=== PATIENT | female | born 1955 | race Caucasian/White ===

== ENCOUNTER 2017-08-04 14:29 | Inpatient (IN) | payer OTHER ==
[~2017-08-04] VITALS: Ht 167.6 cm; Wt 77.1 kg
[2017-08-04] MEDS ORDERED: FORTAMET500 MG (15:48)
[2017-08-04] MEDS ORDERED: LISINOPRIL10 MG (15:48)
[2017-08-09] MEDS ORDERED: PERCOCET 5-3251 EACH PO (13:47)
[2017-08-09] MEDS ORDERED: LEVSIN/SL0.125 MG PO (13:47)
== END 2017-08-09 14:25 | disposition home or self-care (01) | DRG 330 ==
LOC: ER 14:29 → SURH 18:28
PROVIDERS: Surgery
PROC: BW21Y0Z Computerized Tomography (CT Scan) of Abdomen and Pelvis using Other Contrast, Unenhanced and Enhanced (ICD-10-PCS; 2017-08-04)
PROC: 07TC4ZZ Resection of Pelvis Lymphatic, Percutaneous Endoscopic Approach (ICD-10-PCS; 2017-08-05)
PROC: 0DJD8ZZ Inspection of Lower Intestinal Tract, Via Natural or Artificial Opening Endoscopic (ICD-10-PCS; 2017-08-05)
PROC: 0DTN4ZZ Resection of Sigmoid Colon, Percutaneous Endoscopic Approach (ICD-10-PCS; principal; 2017-08-05 08:45)
DX: C19 Malignant neoplasm of rectosigmoid junction (principal); K56.690 Other partial intestinal obstruction; D62 Acute posthemorrhagic anemia; R59.0 Localized enlarged lymph nodes; I11.9 Hypertensive heart disease without heart failure; E11.9 Type 2 diabetes mellitus without complications

== ENCOUNTER 2021-05-08 06:34 | Day surgery (SDC) | payer OTHER ==
[~2021-05-08 06:34] MED LIST: FORTAMET500 MG; LEVSIN/SL0.125 MG PO; LISINOPRIL10 MG; PERCOCET 5-3251 EACH PO
== END 2021-05-08 11:55 | disposition home or self-care (01) ==
LOC: CIR.AMB 06:34
PROVIDERS: ATTEND Surgery
DX: K62.89 Other specified diseases of anus and rectum (principal); K64.8 Other hemorrhoids